=== PATIENT | female | born 1995 | race African-American/Black ===

== ENCOUNTER 2022-05-13 16:42 | Emergency (ER) | payer OTHER, SELFPAY ==
[2022-05-13 16:47] VITALS: BP 147/75; PULSE 74; RESP 16; TEMP 37.7; O2SAT 100
--- NOTE | 2022-05-13 19:26 | ED.GENADULT ---
HPI - General Adult General Chief complaint: Dental/Oral Stated complaint: DENTAL ABSCESS? Time Seen by Provider: 05/13/22 19:02 History of Present Illness HPI narrative: this is a 26-year-old female presenting ED with dental pain x1 year. Patient has poor dentition has been trying to get into a dentist but cannot due to insurance. Over last 2 weeks she started to have pain in her lower left molars. She has taken ibuprofen with little relief. Starting today she noticed some swelling of her left jaw. Patient denies fever, chills, nausea vomiting or diarrhea. She denies feelings of swelling in her throat or in her mouth. The patient knows that she needs to see an oral surgeon and is attempting to find 1. The goal of today's visit is pain control. Related Data Allergies Allergy/AdvReac Type Severity Reaction Status Date / Time No Known Allergies Allergy Verified 05/13/22 19:31 Review of Systems Review of Systems: CONSTITUTIONAL: Denies night sweats. EYES: No eye pain ENT: Denies rhinorrhea CARDIOVASCULAR: Denies palpitations RESPIRATORY: Denies hemoptysis GASTROINTESTINAL: Denies hematemesis GENITOURINARY: Denies hematuria. SKIN: Denies rash MUSCULOSKELETAL: Denies myalgia. NEUROLOGIC: Denies weakness. PSYCHIATRIC: Denies delusions PMFSH Past Medical History Medical History (Updated 05/13/22 @ 19:31 by Jerry Connor MD) Poor dentition Social History Social History (Updated 05/13/22 @ 19:27 by Jerry Connor MD) Social History: Patient drinks alcohol smokes cigarettes and does marijuana occasionally. Denies other drug use. Exam Narrative: APPEARANCE: No apparent distress. Head: Minor swelling over the patient's left jaw without a palpable area of fluctuance or visual erythema. the inside of the patient's mouth has no evidence of abscess. EYES: EOMI, NOSE: Atraumatic NECK: Trachea midline RESPIRATORY: No increased rate of breathing CARDIOVASCULAR: RRR, ABDOMINAL: Non-distended MUSCULOSKELETAl: No obvious deformities NEURO: Alert. Moving 4/4 extremities SKIN:: Warm, dry. Normal color PSYCHIATRIC: Normal affect Course Vital Signs Vital signs: Vital Signs Temperature 99.9 F H 05/13/22 16:47 Pulse Rate 74 05/13/22 16:47 Respiratory Rate 16 05/13/22 16:47 Blood Pressure 147/75 H 05/13/22 16:47 Pulse Oximetry 100 05/13/22 16:47 Oxygen Delivery Room Air 05/13/22 16:47 Temperature 99.9 F H 05/13/22 16:47 Pulse Rate 74 05/13/22 16:47 Respiratory Rate 16 05/13/22 16:47 Blood Pressure 147/75 H 05/13/22 16:47 Pulse Oximetry 100 05/13/22 16:47 Oxygen Delivery Room Air 05/13/22 16:47 Medical Decision Making MDM Narrative Medical decision making narrative: This is a 26-year-old female presenting with dental pain. She has no evidence of abscess in the patient's mouth. She does have some minor swelling to the left jaw but no area of fluctuance or erythema. She will be given pain medication and a course of Augmentin. She has been instructed follow-up with a dentist or her PCP who may be able to get her in touch w/ dentist who takes her insurance. Vital Signs Vital Signs: Vital Signs Temperature 99.9 F H 05/13/22 16:47 Pulse Rate 74 05/13/22 16:47 Respiratory Rate 16 05/13/22 16:47 Blood Pressure 147/75 H 05/13/22 16:47 Pulse Oximetry 100 05/13/22 16:47 Oxygen Delivery Room Air 05/13/22 16:47 Temperature 99.9 F H 05/13/22 16:47 Pulse Rate 74 05/13/22 16:47 Respiratory Rate 16 05/13/22 16:47 Blood Pressure 147/75 H 05/13/22 16:47 Pulse Oximetry 100 05/13/22 16:47 Oxygen Delivery Room Air 05/13/22 16:47 Discharge Plan Discharge Clinical Impression: Toothache Patient Disposition: Home, Self-Care Condition: Stable Instructions: Antibiotic Form, Toothache (ED) Additional Instructions: Please take a 10 day course of Augmentin. Please take Motrin Tylenol for pain control. Please
[2022-05-13] MEDS: HYDROcodone/acetaminophen (*CRX) 5-325 MG TABLET 2 TAB PO (20:05)
[2022-05-13] MEDS: AMOXICILLIN/CLAVULANATE K 875-125 MG TAB 1 TABLET PO (20:06)
== END 2022-05-13 20:10 | disposition home or self-care (01) ==
LOC: ANHED 19:32
PROVIDERS: Emergency Provider Emergency Medicine
DX: K08.89 Other specified disorders of teeth and supporting structures (principal)
CPT/HCPCS: 99283; A9270